=== PATIENT | male | born 1955 | race Caucasian/White ===

== ENCOUNTER 2017-11-25 00:42 | Day surgery (SDC) | payer OTHER ==
[~2017-11-25] VITALS: Ht 177.8 cm; Wt 95.3 kg
[~2017-11-25 00:42] MED LIST: ALB18R INH; GUAI1TBM PO; GUAI600T57 PO; RANI-324 PO; TIOT4MIS5 INH
[2017-11-25] MEDS ORDERED: PROPOFOL EMUL(*) 10MG/ML 20 ML 40 ML ONE (07:32)
[2017-11-25 11:29] VITALS: BP 107/56
[2017-11-25] MEDS ORDERED: MIDAZOLAM 2 MG/2 ML VIAL IVP PRN (12:05)
[2017-11-25] MEDS ORDERED: LIDOCAINE/SOD BICARB 8.4% SYR ID ONE (12:05)
[2017-11-25] MEDS ORDERED: NORMOSOL R SOLN(*) 1000 ML BAG 1,000 ML IV PRN (12:05)
[2017-11-25] MEDS ORDERED: PROPOFOL EMUL(*) 10MG/ML 20 ML 20 ML ONE (12:32)
[2017-11-25 12:51] VITALS: BP 118/88
[2017-11-25 13:00] VITALS: BP 110/80
[2017-11-25 13:12] VITALS: BP 108/86
[2017-11-25 13:22] VITALS: BP 121/68
[2017-11-25 13:24] VITALS: BP 124/80
== END 2017-11-25 13:35 | disposition short-term general hospital (02) ==
LOC: OR 00:42
PROVIDERS: ATTEND Family Medicine
DX: K63.5 Polyp of colon (principal); K57.30 Diverticulosis of large intestine without perforation or abscess without bleeding
CPT/HCPCS: 00811; 45380; 88305; J2704